=== PATIENT | female | born 1990 | race Caucasian/White ===

== ENCOUNTER 2020-06-29 14:19 | Outpatient (REF) | payer MEDICAID, SELFPAY ==
[2020-07-02 21:19] LABS: COVID-19 RT-PCR Result Positive (Negative)
== END 2020-06-29 14:39 ==
LOC: NCHCN 14:19
PROVIDERS: PCP Pediatrics; Visit Provider Nurse Practitioner Family
DX: Z11.59 Encounter for screening for other viral diseases (principal)
CPT/HCPCS: U0003

== ENCOUNTER 2020-08-29 15:23 | Outpatient (REF) | payer BC, SELFPAY ==
[2020-08-29 16:47] LABS: Anion Gap 10.6 mmol/L (3-11); BUN 9 mg/dL (7-18); CO2 26.4 mmol/L (21.0-32.0); CREATININE 0.6 mg/dL (0.55-1.02); Chloride 103 mmol/L (98-107); Glucose 99 mg/dL (74-106); Sodium 140 mmol/L (136-145)
[2020-08-31 12:22] LABS: ANA Interpretation Negative (Negative)
[2020-09-01 11:16] LABS: dsDNA Ab, IgG <12.3 IU/mL (<30.0)
== END 2020-08-29 15:43 ==
LOC: NCHCN 15:23
PROVIDERS: PCP Pediatrics; Visit Provider Nurse Practitioner Family
DX: Q18.1 Preauricular sinus and cyst (principal); R21 Rash and other nonspecific skin eruption; Z00.00 Encounter for general adult medical examination without abnormal findings; G43.909 Migraine, unspecified, not intractable, without status migrainosus
CPT/HCPCS: 80048; 86038; 86225